=== PATIENT | male | born 1970 | race Caucasian/White ===

== ENCOUNTER → 2018-11-14 07:19 | Outpatient (CLI) | payer OTHER, SELFPAY ==
[2018-11-14 08:48] LABS: Add Manual Diff / Slide Review NO; Basophils Absolute Auto 0 /uL (0-100); Basophils Percent Auto 0.8 % (0-2); Eosinophils Absolute Auto 200 /uL (0-450); Eosinophils Percent Auto 3.8 % (2-4); Hemoglobin 14.4 g/dL (13.5-17.5); Lymphocytes Absolute Auto 1800 /uL (1100-4500); Lymphocytes Percent Auto 39.5 % (25-40); Mean Corpuscular HGB Conc 34.2 % (30-36); Mean Corpuscular Hemoglobin 31.6 PG (26-34); Mean Corpuscular Volume 92.6 fL (80-100); Monocytes Absolute Auto 500 /uL (0-900); Monocytes Percent Auto 9.8 % (3-14); Neutrophils Absolute Auto 2200 /uL (1500-7000); Neutrophils Percent Auto 46.1 % (50-75); Platelet Count 242 X10^3/uL (150-400); Red Blood Cell Count 4.54 X10^6/uL (4.5-5.9); Red Cell Distribution Width 12.8 % (11.6-14.8); White Blood Cell Count 4.7 X10^3/uL (4.5-11.0)
[2018-11-14 09:17] LABS: Alanine Aminotransferase 26 IU/L (21-72); Albumin 4.4 g/dL (3.5-5.0); Albumin Globulin Ratio 1.6 (1.0-2.8); Alkaline Phosphatase 43 U/L (38-126); Aspartate Aminotransferase 23 IU/L (17-59); Bilirubin Total 0.6 mg/dL (0.2-1.3); Blood Urea Nitrogen 14 mg/dL (9-20); Calcium 9.7 mg/dL (8.4-10.2); Carbon Dioxide 27 mmol/L (22-32); Chloride 100 mmol/L (98-107); Cholesterol 223 mg/dL (140-199); Estimated Glomerular Filt Rate > 60.0 mL/min (>60); Globulin 2.8 g/dL (1.7-4.1); Glucose 95 mg/dL (70-100); HDL Cholesterol 64 mg/dL (40-60); HEMOLYSIS < 15 (0-50); LDL Cholesterol Calculated 144 mg/dL (<100); Potassium 4.8 mmol/L (3.4-5.1); Sodium 138 mmol/L (137-145); Total Protein 7.2 g/dL (6.3-8.2); Triglycerides 74 mg/dL (35-150)
== END ==
PROVIDERS: PCP Family Medicine; Visit Provider Family Medicine
DX: E78.2 Mixed hyperlipidemia (principal); I10 Essential (primary) hypertension
CPT/HCPCS: 36415; 80053; 80061; 85025

== ENCOUNTER → 2018-12-27 09:05 | Outpatient (CLI) | payer OTHER, SELFPAY ==
--- NOTE | 2018-12-27 10:32 | PM.TREADMILL ---
Cardiac Stress Test Report Referral & Results Date Patient Seen: 12/27/18 Requesting provider: Mele Santiago Indication: Risk factors Rest ECG: Unremarkable Procedure Note: Today following both written and verbal informed consent, the patient was exercised according to a standard Greg protocol. The patient exercised for a total of 12 minutes 2 seconds achieving a maximum heart rate of 170. Patient's maximum systolic blood pressure was 212. This was an estimated 12.8 MET's. With exercise patient did have ST segment drooping in lead V6 alone. This rapidly returned to baseline at cessation of activity within the 1st 10 seconds in recovery. No other ST segment changes were identified. Patient had normal heart rate and blood pressure response to exercise Functional aerobic impairment rates about-15% on the active scale or 115% normal Single PVC was identified Impression: Nonspecific ST changes above almost certainly nonischemic. Excellent exercise capacity Overall, I would consider this to be a normal test with excellent exercise capacity Please note: Actual ECG tracings can be found in the PACS system.
== END ==
PROVIDERS: PCP Family Medicine; Visit Provider Family Medicine
DX: I10 Essential (primary) hypertension (principal); E78.2 Mixed hyperlipidemia; Z82.49 Family history of ischemic heart disease and other diseases of the circulatory system
CPT/HCPCS: 93016; 93017; 93018

== ENCOUNTER → 2020-01-17 14:56 | Outpatient (CLI) | payer OTHER, SELFPAY ==
[2020-01-19 00:58] LABS: COVID19 Sendout Not Detected (Not Detect)
== END ==
PROVIDERS: PCP Family Medicine; Visit Provider Physician Assistant
DX: Z11.59 Encounter for screening for other viral diseases (principal)
CPT/HCPCS: 87635

== ENCOUNTER → 2020-05-12 10:52 | Outpatient (CLI) | payer OTHER, SELFPAY ==
[2020-05-12 12:00] LABS: Alanine Aminotransferase 33 IU/L (<50); Albumin 4.6 g/dL (3.5-5.0); Albumin Globulin Ratio 1.4 (1.0-2.8); Alkaline Phosphatase 45 U/L (38-126); Aspartate Aminotransferase 50 IU/L (17-59); BUN Creatinine Ratio 15.9 (6-22); Bilirubin Total 0.8 mg/dL (0.2-1.3); Blood Urea Nitrogen 13 mg/dL (9-20); Carbon Dioxide 28 mmol/L (22-32); Chloride 101 mmol/L (98-107); Cholesterol 228 mg/dL (140-199); Estimated Glomerular Filt Rate > 60.0 mL/min (>60); Globulin 3.4 g/dL (1.7-4.1); Glucose 101 mg/dL (70-100); HDL Cholesterol 77 mg/dL (40-60); HEMOLYSIS 49 (0-50); LDL Cholesterol Calculated 139 mg/dL (<100); Potassium 4.3 mmol/L (3.4-5.1); Sodium 137 mmol/L (137-145); Triglycerides 60 mg/dL (35-150)
== END ==
PROVIDERS: PCP Internal Medicine; Referring Provider Internal Medicine; Visit Provider Internal Medicine
DX: E78.2 Mixed hyperlipidemia (principal); I10 Essential (primary) hypertension
CPT/HCPCS: 36415; 80053; 80061

== ENCOUNTER 2022-04-22 06:48 | Day surgery (SDC) | payer OTHER, SELFPAY ==
[2022-04-22] VITALS (7 sets, daily range): BP systolic 107–150; BP diastolic 48–86; PULSE 58–69; RESP 15–18; TEMP 36.1–36.5; O2SAT 98–100; BMI 65.1
--- NOTE | 2022-04-22 | PATH_ITS ---
[facility] Accession Number: [id number] No. of containers..03 Tissue . 01 Material submitted: . PART A: hepatic flexure - HEPATIC FLEXURE POLYP PART B: colon - TRANSVERSE POLYP PART C: rectum - RECTAL POLYP . 01 Diagnosis: A. Hepatic Flexure, Polyp, Biopsy: Sessile serrated adenoma. . B. Transverse Colon, Polyp, Biopsy: Tubular adenoma. . C. Rectum, Polyp, Biopsy: Tubular adenoma. MRV 04/27/2022 1543 Local . 01 Electronically signed: . Amalia Tracey MD, Pathologist NPI- [id number] . 01 Gross description: . A. Received in formalin, labeled with the patient's name, , and designated hepatic flexure polyp, and consists of three irregular connelly, soft tissue fragments ranging from 0.2 cm to 1.0 cm in greatest dimension. Submitted entirely in cassette A1. B. Received in formalin, labeled with the patient's name, , and designated transverse colon polyp, and consists of three irregular connelly, soft tissue fragments ranging from 0.2 cm to 0.3 cm in greatest dimension. Submitted entirely in cassette B1. C. Received in formalin, labeled with the patient's name, , and designated rectal polyp, and consists of multiple irregular connelly, soft tissue fragments aggregating to 1.3 x 0.7 x 0.1 cm. The specimen is filtered into a biopsy bag and submitted entirely in cassette C1. ([id number]) /FRPilo 04/23/2022 1529 Local . 01 Pathologist provided ICD-10: D12.3, D12.8 . 01 CPT . 250148, 412104, 061173 Specimen Comment: A courtesy copy of this report has been sent to [facility] Performed at: 01 [facility] [address] [facility], [place], [place] [id number] MD Shon Roblero MD Phone: [phone]
[2022-04-22] MEDS: LACTATED RINGERS 1,000 ML 120 ML IV (07:24)
--- NOTE | 2022-04-22 07:33 | PM.HP.1 ---
History of Present Illness History of Present Illness Date Patient Seen: 04/22/22 Chief complaint: AZC Narrative: Mr. Wilhelm presents today for a screening colonoscopy. He has no family history of colon cancer. He has not had any concerning symptoms no bleeding or change in bowel movements. He simply is presenting for screening and has no questions. Patient History Medical History Essential hypertension (06/15/17) Foot pain (~2019) Family & Social History Family History Father Coronary arteriosclerosis Sister Multiple sclerosis Social History: household members spouse Tobacco & Substance use: Smoking Status Never smoker alcohol intake current alcohol intake frequency 0-2 drinks per day Substance Use Type does not use Meds Home Medications and Allergies Home Medications Medication Instructions Recorded Confirmed Type lisinopril 20 mg tablet See Rx Instructions .Route 04/08/22 Rx .COMPLEX #180 tabs sodium,potassium,mag sulfates 17.5 See Rx Instructions PO .COMPLEX 04/14/22 Rx gram-3.13 gram-1.6 gram oral soln #354 mL (Suprep Bowel Prep Kit) Allergies Allergy/AdvReac Type Severity Reaction Status Date / Time No Known Drug Allergies Allergy Verified 11/16/21 16:05 Exam Vital Signs (past 8 hours): - 04/22/22 07:12 Temperature 97.7 F Pulse Rate 62 Respiratory Rate 16 Blood Pressure 150/72 H Pulse Oximetry 99 Oxygen Delivery Method Room Air Oxygen Delivery Method Room Air Const General: cooperative, healthy appearing and comfortable HENID Head: normal to inspection Eyes General: appearance normal, both eyes and all related structures GI Inspection: normal to inspection Palpation: soft and No tender Assessment & Plan Assessment and plan (1) Screening for colon cancer: Status: Acute Plan I discussed the risks benefits and alternatives of a screening colonoscopy including incomplete exam and perforation. The patient understands these risks and would like to proceed today. Time Spent With Patient Critical Care time: I spent a total of [] minutes of critical care time on this patient's care today; this time is exclusive of procedural time.
--- NOTE | 2022-04-22 08:54 | PM.OP.COLON ---
Operative Date/Time/Diagnoses Date of procedure: 04/22/22 Pre-op diagnosis: Screening for colon cancer Post-op diagnosis: same Procedure & Clinicians Study performed: Colonoscopy and biopsy Same procedure as scheduled: Yes Indications: Screening for colon cancer Surgeon: Justine Tripathi Procedure Notes Procedure in detail: Patient was taken to the endoscopy suite and placed in a left lateral decubitus position. A time-out was performed. Conscious sedation was provided by anesthesiologist. Digital rectal exam was performed there were no strictures or masses. Inferior portion of the prostate that was palpable is smooth. The colonoscope was introduced into the anal canal and advanced through to the cecum. A photograph was obtained of the appendiceal orifice. A withdrawal time in total of 34 minutes including biopsies. Bowel prep was excellent Marion bowel prep score of 3. The 1st polyp encountered was at the hepatic flexure. There were 2 small polyps that were both biopsied and sent in the same specimen container. The next was a medium-sized polyp at the transverse colon that was snared and sent for pathology. Finally a large pedunculated rectal polyp was encountered at 20 cm this was snared and entirely removed using a snare and biopsy forceps. A photograph was taken of the biopsy site. Additionally there were some scattered diverticula throughout the sigmoid colon. Photographs were obtained of these. The scope was then retroflexed and internal hemorrhoid piles appeared within normal limits. Specimen(s): other (1. Hepatic flexure 2. Transverse polyp 3. Rectal polyp) Complications: none Post-procedure Plan for aftercare: Depending on the pathology of these 4 polyps follow-up recommendations may be as early as 3-5 years.
== END 2022-04-22 09:14 | disposition home or self-care (01) ==
PROVIDERS: PCP Internal Medicine; Referring Provider Surgery; Visit Provider Surgery
PROC: 0DJD8ZZ Inspection of Lower Intestinal Tract, Via Natural or Artificial Opening Endoscopic (ICD-10-PCS; CPT 45378; principal; 2022-04-22 07:45)
DX: Z12.11 Encounter for screening for malignant neoplasm of colon (principal); K57.30 Diverticulosis of large intestine without perforation or abscess without bleeding; D12.3 Benign neoplasm of transverse colon; D12.8 Benign neoplasm of rectum
CPT/HCPCS: 45385; 45380; J2704

== ENCOUNTER → 2024-02-06 16:36 | Outpatient (CLI) | payer OTHER, SELFPAY ==
[2024-02-06 17:32] LABS: Alanine Aminotransferase 35 IU/L (<50); Albumin 4.6 g/dL (3.5-5.0); Albumin Globulin Ratio 1.6 (1.0-2.8); Alkaline Phosphatase 56 U/L (38-126); Aspartate Aminotransferase 35 IU/L (17-59); BUN Creatinine Ratio 17.9 (6-22); Bilirubin Total 0.4 mg/dL (0.2-1.3); Blood Urea Nitrogen 19 mg/dL (9-20); Calcium 9.6 mg/dL (8.4-10.2); Carbon Dioxide 28 mmol/L (22-32); Chloride 103 mmol/L (98-107); Estimated Glomerular Filt Rate > 60 mL/min (>60); Globulin 2.9 g/dL (1.7-4.1); Glucose 97 mg/dL (70-100); HEMOLYSIS < 15 (0-50); Sodium 139 mmol/L (137-145); Total Protein 7.5 g/dL (6.3-8.2)
== END ==
PROVIDERS: PCP Internal Medicine; Referring Provider Internal Medicine; Visit Provider Internal Medicine
DX: I10 Essential (primary) hypertension (principal); M19.041 Primary osteoarthritis, right hand; M19.042 Primary osteoarthritis, left hand; L82.1 Other seborrheic keratosis
CPT/HCPCS: 36415; 80053

== ENCOUNTER → 2024-05-11 12:52 | Outpatient (CLI) | payer OTHER, SELFPAY ==
[2024-05-11 14:00] LABS: Influenza A - CEPHEID Flu A NEGATIVE (NEGATIVE); Influenza B - CEPHEID Flu B NEGATIVE (NEGATIVE); Respiratory Syncytial Virus Negative (Negative)
[2024-05-11 14:09] LABS: COVID-19 CEPHEID 4-PLEX PCR Negative (Negative)
== END ==
PROVIDERS: PCP Internal Medicine; Visit Provider Physician Assistant Surgical
DX: R05.9 Cough, unspecified (principal)
CPT/HCPCS: 0241U

== ENCOUNTER → 2025-01-22 07:31 | Outpatient (CLI) | payer OTHER, SELFPAY ==
[2025-01-22 08:30] LABS: Alanine Aminotransferase 37 IU/L (<50); Albumin 4.7 g/dL (3.5-5.0); Albumin Globulin Ratio 1.6 (1.0-2.8); Alkaline Phosphatase 54 U/L (38-126); Blood Urea Nitrogen 20 mg/dL (9-20); Calcium 9.4 mg/dL (8.4-10.2); Carbon Dioxide 28 mmol/L (22-32); Chloride 99 mmol/L (98-107); Cholesterol 232 mg/dL (140-199); Estimated Glomerular Filt Rate > 60 mL/min (>60); Globulin 3.0 g/dL (1.7-4.1); Glucose 104 mg/dL (70-99); HDL Cholesterol 73 mg/dL (40-60); HEMOLYSIS < 15 (0-50); Potassium 4.3 mmol/L (3.4-5.1); Sodium 136 mmol/L (137-145); Total Protein 7.7 g/dL (6.3-8.2); Triglycerides 50 mg/dL (35-150)
== END ==
PROVIDERS: PCP Internal Medicine; Referring Provider Internal Medicine; Visit Provider Internal Medicine
DX: I10 Essential (primary) hypertension (principal); E78.5 Hyperlipidemia, unspecified
CPT/HCPCS: 36415; 80053; 80061

== ENCOUNTER 2025-02-04 07:56 | Day surgery (SDC) | payer OTHER, SELFPAY ==
[2025-01-21 15:11] VITALS: BMI 31.1
--- NOTE | 2025-02-04 06:43 | PM.HP.IH.1 ---
History of Present Illness History of Present Illness Date Patient Seen: 02/04/25 Chief complaint: SDC Narrative: Patient presents for laparoscopic bilateral inguinal hernia repair with mesh (TEP) today. [facility] Medical History (Updated 12/30/24 @ 08:15 by Oliver Khan MD) Degenerative arthritis of thumb Left inguinal hernia History of adenomatous polyp of colon Foot pain (~2019) Essential hypertension (06/15/17) Surgical History (Updated 01/21/25 @ 15:14 by Fay Norris RN) History of colonoscopy (04/22/22) Family History Father Coronary arteriosclerosis Sister Multiple sclerosis Social History household members: spouse Smoking Status: Never smoker alcohol intake: current Meds Home Medications and Allergies Home Medications ?Medication ?Instructions ?Recorded ?Confirmed ?Type chlorthalidone 25 mg tablet 25 mg PO DAILY #90 tabs 11/12/24 01/27/25 Rx lisinopril 20 mg tablet 20 mg PO BID #180 tabs 01/30/25 Rx Allergies Allergy/AdvReac Type Severity Reaction Status Date / Time No Known Drug Allergies Allergy Verified 01/27/25 15:00 Exam Narrative Exam Narrative: Const General: healthy appearing, comfortable and no acute distress Orientation: alert and oriented x3 HENMT Ears: hearing grossly normal bilaterally Eyes Visual Mccord: normal visual mccord by confrontation Conjunctivae: conjunctivae normal Sclera: sclerae normal EOM: EOM intact bilaterally Resp Effort & Inspection: normal respiratory effort and able to speak in complete sentences Cardio Rate: regular rate GI Palpation: soft (NT) Bilateral inguinal hernias Extrem General: no pedal edema and no calf tenderness Assessment & Plan Assessment and plan (1) Bilateral inguinal hernia: Qualifiers: Obstruction and gangrene presence: without obstruction or gangrene Recurrence: non-recurrent Qualified Code(s): K40.20 - Bilateral inguinal hernia, without obstruction or gangrene, not specified as recurrent Status: Acute Plan Plan laparoscopic bilateral inguinal hernia repair. The risks, benefits and options regarding the procedure were explained to the patient in detail. Risk discussion included but not limited to: bleeding, bruising, recurrence, urinary retention. The patient was encouraged to ask questions and they were answered to their satisfaction. The patient understands and is agreeable to proceed. Time-Based Coding :: [TOTAL MINUTES] spent with patient and on the chart (including review of chart, obtaining history, exam, reviewing outside data, placing orders, documenting exam and treatment plan, and counseling patient) on [DATE]. [employer] Document charge(s): Yes Charge Codes Inpatient/observation care including admit and discharge same day: [id number]
[2025-02-04 08:19] VITALS: BP 145/83; PULSE 69; RESP 16; TEMP 36.5; O2SAT 99
[2025-02-04] MEDS: ACETAMINOPHEN 325 MG TABLET 975 MG PO (08:24)
[2025-02-04] MEDS: FAMOTIDINE 20 MG/2 ML VIAL IV (08:24)
[2025-02-04] MEDS: LACTATED RINGERS 1,000 ML 42 ML IV (08:24)
--- NOTE | 2025-02-04 08:58 | SUR.OPER ---
Supine on padded OR bed, head on pillow, pink pad positioner under patient, arms padded and tucked at sides, purple strap aross chest, legs uncrossed, safety belt at thigh, tape over blanket over lower legs. IV site and ports padded and protected.
[2025-02-04] MEDS: BUPivacaine 0.25% W/ EPI (PF) 30 ML VIAL 60 ML INJ (09:07)
--- NOTE | 2025-02-04 09:53 | PM.OP.1 ---
Operative Date/Time/Diagnoses Date of procedure: 02/04/25 Time of procedure: 09:53 Pre-op diagnosis: Bilateral inguinal hernia Post-op diagnosis: same (Indirect on left; cord lipoma on right) Procedure & Clinicians Procedure: Laparoscopic bilateral inguinal hernia repair with mesh, TEP Same procedure(s) as scheduled: Yes Indications: 54yo M, symptomatic bilateral inguinal hernia Surgeon: Oliver Khan Assisted?: Yes Electric Serviceman: Shahab Glass Anesthesia Type: General Operative Notes Findings: Indirect on left; cord lipoma on right Closure Type: primary Specimen(s): none sent Applied: none Estimated Blood Loss (mL): 10 Blood products transfused: none Procedure in detail: After informed consent and satisfactory general endotracheal anesthesia, the groins were shaved, prepped and draped in the usual sterile manner.? The patient received appropriate preoperative antibiotics and DVT prophylaxis.? Surgical time-out was performed with all team members in agreement.? The correct side was marked in the preoperative holding area, bilateral in this case.? The left side was the more symptomatic side and was addressed first. The preperitoneal space was entered via an infraumbilical incision.? An 0 Vicryl [id number]-[id number]-pyyuf suture was placed on the anterior rectus sheath incision lateral to midline, ipsilateral to the side of the hernia.? The rectus muscle was retracted laterally and the preperitoneal space was dissected with a blunt 10 mm instrument.? The 10 mm trocar was inserted and the preperitoneal space was insufflated to a pressure of 12 mmHg with carbon dioxide gas.? This allowed direct visual placement of two 5 mm trocars in the suprapubic midline.? The patient was placed in Trendelenburg position.? We further dissected the preperitoneal space including the femoral, direct and indirect spaces.? We dissected out lateral and an ilioinguinal nerve block was performed under direct vision by injecting 10 cc of 0.5% Marcaine with epinephrine into the transversus muscle under direct vision 2 fingerbreadths medial to the anterior superior iliac spine.? A total of 30 cc of 0.5% Marcaine with epinephrine was used.? The remainder was injected into the musculature at the end of the procedure for postoperative analgesia.? Once the preperitoneal space was dissected free we noticed an indirect inguinal hernia. There were no direct or femoral defects.? The peritoneum was dissected proximally off of the cord structures to allow room for the mesh.?A large Bard 3D Duramax mesh was selected and inserted into the preperitoneal space and unrolled until it was in perfect position and noted to lay in a flat position without wrinkling.? The mesh covered all 3 potential hernia defects widely.? Hemostasis was excellent throughout. The right side was addressed in an identical manner. The right side had no direct or femoral defects and the peritoneal edge was in normal position, no indirect sac consistent with cord lipoma. I dissected any cord lipoma proximally. On the left side, the inferior epigastrics were posterior and required division between hemolock clips to allow the mesh to lay flat.?I held the lower border of the mesh with the grasper as we released the carbon dioxide and the peritoneum was noted to relax in a very pleasing manner against the mesh holding it in place.? No tacking or fixation was required. The trocars were remove and there was no bleeding noted at the trocar sites.? We then placed the trocar in the peritoneal cavity to ensure all inguinal hernia defects were addressed and this confirmed we had. The mesh was noted to lay flat bilaterally. The 0 Vicryl [id number]-[id number] suture was tied on the umbilical fascia with no palpable fascial defects.? The skin incisions were closed using 4-0 Monocryl in a subcuticular manner.? Dermabond glue was applied as a final dressing.? The instrument, sponge and needle counts were all correct x2.? The patient tolerated the procedure well and was extubated in the operating room and transported to the recovery area in stable condition. Complications: none Post-operative Condition: stable Disposition: PACU Plan for aftercare: PACU then home
[2025-02-04 10:04] VITALS: BP 138/66; PULSE 86; RESP 16; TEMP 37; O2SAT 98
[2025-02-04] MEDS: KETOROLAC 30 MG/ML VIAL 15 MG IV (10:06)
[2025-02-04 10:12] VITALS: BP 133/58; PULSE 80; RESP 18; TEMP 37; O2SAT 95
[2025-02-04] MEDS: ONDANSETRON 4 MG/2 ML INJ IV ×2 (10:12→11:55)
[2025-02-04 10:22] VITALS: BP 130/70; PULSE 78; RESP 15; TEMP 36.9; O2SAT 95
[2025-02-04 12:06] VITALS: BP 141/79; PULSE 68; RESP 15; O2SAT 98
--- NOTE | 2025-02-04 12:26 | SUR.PHASEII ---
Patient ambulatory to the bathroom without difficulty; voided without difficulty prior to discharge home with .
== END 2025-02-04 12:27 | disposition home or self-care (01) ==
PROVIDERS: PCP Internal Medicine; Referring Provider Internal Medicine; Visit Provider Surgery
PROC: 0YQ64ZZ Repair Left Inguinal Region, Percutaneous Endoscopic Approach (ICD-10-PCS; CPT 49650; principal; 2025-02-04 09:15)
DX: K40.20 Bilateral inguinal hernia, without obstruction or gangrene, not specified as recurrent (principal); D17.6 Benign lipomatous neoplasm of spermatic cord; I10 Essential (primary) hypertension
CPT/HCPCS: 49650; C1781; J0689; J1100; J1885; J2250; J2405; J2704; J3010; J3490; J7120